=== PATIENT | male | born 1995 | race Caucasian/White ===

== ENCOUNTER 2017-03-11 21:42 | Emergency (ER) | payer BC ==
[2017-03-11] MEDS ORDERED: Ketorolac 60 MG/2 ML SDV IM ONE (21:57)
[2017-03-11] MEDS ORDERED: Acetaminophen/HYDROcodone 325-7.5 MG Tab PO ONE (21:58)
--- NOTE | 2017-03-11 22:01 | EDM.PDOC ---
ED HPI GENERAL MEDICAL PROBLEM - General Chief Complaint: Skin Complaint Stated Complaint: RASH ON BACK & STOMACH Time Seen by Provider: 03/11/17 21:50 - History of Present Illness INITIAL COMMENTS - FREE TEXT/NARRATIVE: HISTORY AND PHYSICAL: History of present illness: The patient is a 21-year-old male who has no stated medical problems and presents with a one-week history of rash that started on his soft tissue left thoracic back and has now spread around his rib cage. It is itchy and painful and he thinks it is zoster. Has had no systemic complaints of fever chills nausea vomiting chest pain or shortness of breath. Review of systems: As per history of present illness and below otherwise all systems reviewed and negative. Past medical history: As per history of present illness and as reviewed below otherwise noncontributory. Surgical history: As per history of present illness and as reviewed below otherwise noncontributory. Social history: No reported history of drug or alcohol abuse. Family history: As per history of present illness and as reviewed below otherwise noncontributory. Physical exam: Gen.: Well-developed well-nourished male who is nontoxic HEENT: Atraumatic, normocephalic, negative for conjunctival pallor or scleral icterus, mucous membranes moist, throat clear, neck supple, nontender, trachea midline. Lungs: Clear to auscultation, breath sounds equal bilaterally, chest nontender. There is a visible vesicular rash in the T6 distribution on the left side which has localized erythema but there is no bony crepitus deformities of soft tissue swelling Heart: S1S2, regular, negative for clicks, rubs, or JVD. Abdomen: Soft, nondistended, nontender. NABS Skin: Rash as described above otherwise no evidence of any rashes or lesions and normal turgor Genitourinary: Deferred. Rectal: Deferred. Extremities: Atraumatic, negative for cords or calf pain. Neurovascular unremarkable. Neuro: Awake, alert, oriented. Cranial nerves II through XII unremarkable. Cerebellum unremarkable. Motor and sensory unremarkable throughout. Exam nonfocal. Diagnostics: [] Therapeutics: Toradol [place] Impression: Zoster of the thoracic chest wall Definitive disposition and diagnosis as appropriate pending reevaluation and review of above. - Related Data Allergies Allergy/AdvReac Type Severity Reaction Status Date / Time No Known Allergies Allergy Verified 03/11/17 21:54 Home Meds: Home Meds . [No Known Home Meds] 03/11/17 [History] ED ROS GENERAL - Review of Systems Review Of Systems: ROS reveals no pertinent complaints other than HPI. ED EXAM, SKIN/RASH Exam: See Below (See dictation) Departure - Departure Time of Disposition: 22:00 Disposition: Home, Self-Care 01 Condition: Good Clinical Impression: Zoster Qualifiers: Herpes zoster complications: without complications Qualified Code(s): B02.9 - Zoster without complications - Discharge Information Forms: ED Department Discharge Additional Instructions: The following information is given to patients seen in the emergency department who are being discharged to home. This information is to outline your options for follow-up care. We provide all patients seen in our emergency department with a follow-up referral. The need for follow-up, as well as the timing and circumstances, are variable depending upon the specifics of your emergency department visit. If you don't have a primary care physician on staff, we will provide you with a referral. We always advise you to contact your personal physician following an emergency department visit to inform them of the circumstance of the visit and for follow-up with them and/or the need for any referrals to a consulting specialist. The emergency department will also refer you to a specialist when appropriate. This referral assures that you have the opportunity for followup care with a specialist. All of these measure are taken in an effort to provide you with optimal care, which includes your followup. Under all circumstances we always encourage you to contact your private physician who remains a resource for coordinating your care. When calling for followup care, please make the office aware that this follow-up is from your recent emergency room visit. If for any reason you are refused follow-up, please contact the [facility] emergency department at and ask to speak to the emergency department charge nurse. [facility] Primary care- [place] [address] Please take medications as prescribed and avoid contact with the individuals we discussed in the room. Please call and follow-up with primary care next week and return to ER as needed and as discussed. The rash will no longer be contagious once scabs form.
[2017-03-11 22:48] VITALS: BP 120/60
== END 2017-03-11 22:37 | disposition home or self-care (01) ==
LOC: MW.ED 21:42
DX: B02.9 Zoster without complications (principal)
CPT/HCPCS: 96372; 99282; A9270; J1885; 99283

== ENCOUNTER 2018-03-19 17:07 | Emergency (ER) | payer BC ==
[2018-03-19] MEDS ORDERED: Sodium Chloride 0.9% 1,000 ML IV ONE (17:21)
[2018-03-19] MEDS ORDERED: Ketorolac 30 MG/ML SDV IVPUSH ONE (17:21)
[2018-03-19] MEDS ORDERED: Ondansetron 4 MG/2 ML SDV IVPUSH ONE (17:21)
--- NOTE | 2018-03-19 17:26 | EDM.PDOC ---
ED HPI GENERAL MEDICAL PROBLEM - General Chief Complaint: Abdominal Pain Stated Complaint: ABDOMINAL PAIN Time Seen by Provider: 03/19/18 17:15 Source of Information: Reports: Patient History Limitations: Reports: No Limitations - History of Present Illness INITIAL COMMENTS - FREE TEXT/NARRATIVE: HISTORY AND PHYSICAL: History of present illness: Patient is a 22-year-old male who presents to the emergency room today with complaints of left upper abdominal pain, nausea and vomiting. He states he has had these symptoms intermittently over the past month that has progressively gotten worse over the past 24 hours. He states that this pain is "sharp" and is not associated with food. Denies any fever, chills, chest pain, shortness of breath or cough. Denies any diarrhea, constipation or dysuria. Denies any alcohol or drug abuse. Review of systems: As per history of present illness and below otherwise all systems reviewed and negative. Past medical history: As per history of present illness and as reviewed below otherwise noncontributory. Surgical history: As per history of present illness and as reviewed below otherwise noncontributory. Social history: No reported history of drug or alcohol abuse. Family history: As per history of present illness and as reviewed below otherwise noncontributory. Physical exam: General: Developed and well-nourished 22-year-old male. Alert and oriented. Nontoxic appearing and in no acute distress. HEENT: Atraumatic, normocephalic, pupils equal and reactive bilaterally, negative for conjunctival pallor or scleral icterus, mucous membranes moist, throat clear, neck supple, nontender, trachea midline. No drooling or trismus noted. No meningeal signs Lungs: Clear to auscultation, breath sounds equal bilaterally, chest nontender. Heart: S1S2, regular rate and rhythm without overt murmur Abdomen: Soft, nondistended, tenderness to the epigastrium and LUQ. Negative for masses or hepatosplenomegaly. Negative for costovertebral tenderness. Pelvis: Stable nontender. Genitourinary: Deferred. Rectal: Deferred. Skin: Intact, warm, dry. No lesions or rashes noted. Extremities: Atraumatic, negative for cords or calf pain. Neurovascular unremarkable. Neuro: Awake, alert, oriented. Cranial nerves II through XII unremarkable. Cerebellum unremarkable. Motor and sensory unremarkable throughout. Exam nonfocal. Notes: Lab work is unremarkable. Vital signs are stable. CT of the abdomen shows a moderate amount of feces throughout the colon, otherwise unremarkable. Patient was shared with the patient. Supportive care measures were reviewed with the patient. We discussed taking [id number] products to help facilitate a bowel movement. He did ask for some Zofran ODT for his nausea. We reviewed signs and symptoms that would prompt him to return to the emergency room. He is agreeable to plan of care. Denies any further questions at this time. Diagnostics: CBC, CMP, UA, amylase, lipase, CT abdomen and pelvis Therapeutics: IV fluid, Zofran, Toradol Impression: Abdominal Pain Plan: 1. Lab work and CT of the abdomen and pelvis are unremarkable. There does appear to be a moderate amount of feces throughout the colon. I would like you to use an over the counter softener (Colace/Miralax) to help facilitate a bowel movement. Increase your Oral fluids. 2. Zofran has been electronically prescribed for nausea management. This is available at [place] pharmacy. 3. Follow-up with your primary caregiver in the next 1-2 days. Return to the ED as needed and as discussed. Definitive disposition and diagnosis as appropriate pending reevaluation and review of above. LUQ Pain Score (Numeric/FACES): 8 - Related Data Allergies Allergy/AdvReac Type Severity Reaction Status Date / Time No Known Allergies Allergy Verified 03/19/18 17:22 Home Meds: Home Meds Albuterol [Proventil HFA] 1 puff INH QID PRN 03/19/18 [History] Bipolar Medication 1 tab PO DAILY 03/19/18 [History] Montelukast [Singulair] 10 mg PO DAILY 03/19/18 [History] Ondansetron [Zofran ODT] 4 mg PO Q6H PRN #8 tab.dis 03/19/18 [Rx] Past Medical History - Past Health History Medical/Surgical History: Denies Medical/Surgical History - Infectious Disease History Infectious Disease History: Reports: Chicken Pox Social & Family History - Family History Family Medical History: Noncontributory ED ROS GENERAL - Review of Systems Review Of Systems: ROS reveals no pertinent complaints other than HPI. ED EXAM, GI/ABD - Physical Exam Exam: See Below (See dictation) Course - Vital Signs Last Recorded V/S: Last Vital Signs Temp 97.7 F 03/19/18 18:16 Pulse 76 03/19/18 18:16 Resp 16 03/19/18 18:16 BP 105/64 03/19/18 18:16 Pulse Ox 95 03/19/18 18:16 - Orders/Labs/Meds Orders: Active Orders 24 hr Category Date Time Status Abdomen Pelvis w Cont [CT] Stat Exams 03/19/18 17:22 Ordered UA W/MICROSCOPIC [URIN] Stat Lab 03/19/18 17:25 Ordered Labs: Laboratory Tests 03/19/18 03/19/18 03/19/18 Range/Units 17:20 17:20 17:20 WBC 7.74 (4.0-11.0) K/uL RBC 4.94 (4.50-5.90) M/uL Hgb 15.5 (13.0-17.0) g/dL Hct 44.6 (38.0-50.0) % MCV 90.3 (80.0-98.0) fL MCH 31.4 (27.0-32.0) pg MCHC 34.8 (31.0-37.0) g/dL RDW Std Deviation 41.8 (28.0-62.0) fl RDW Coeff of [place] 13 (11.0-15.0) % Plt Count 178 (150-400) K/uL MPV 10.30 (7.40-12.00) fL Neut % (Auto) 57.5 (48.0-80.0) % Lymph % (Auto) 31.5 (16.0-40.0) % [place] % (Auto) 6.8 (0.0-15.0) % Eos % (Auto) 3.7 (0.0-7.0) % Baso % (Auto) 0.5 (0.0-1.5) % Neut # (Auto) 4.4 (1.4-5.7) K/uL Lymph # (Auto) 2.4 (0.6-2.4) K/uL [place] # (Auto) 0.5 (0.0-0.8) K/uL Eos # (Auto) 0.3 (0.0-0.7) K/uL Baso # (Auto) 0.0 (0.0-0.1) K/uL Nucleated RBC % 0.0 /100WBC Nucleated RBCs # 0 K/uL Sodium 141 (136-148) mmol/L Potassium 3.9 (3.5-5.1) mmol/L Chloride 104 (98-107) mmol/L Carbon Dioxide 27.5 (21.0-32.0) mmol/L BUN 16 (7.0-18.0) mg/dL Creatinine 1.1 (0.8-1.3) mg/dL Est Cr Clr Drug Dosing 96.81 mL/min Estimated GFR (MDRD) > 60.0 ml/min Glucose 99 (74-106) mg/dL Calcium 8.5 (8.5-10.1) mg/dL Total Bilirubin 0.7 (0.2-1.0) mg/dL AST 30 (15-37) IU/L ALT 18 (14-63) IU/L Alkaline Phosphatase 68 (46-116) U/L Total Protein 7.2 (6.4-8.2) g/dL Albumin 4.3 (3.4-5.0) g/dL Globulin 2.9 (2.0-3.5) g/dL Albumin/Globulin Ratio 1.5 (1.3-2.8) Amylase 76 (25-115) U/L Lipase 321 (73-393) U/L Urine Color Urine Appearance Urine pH (5.0-8.0) Ur Specific [place] (1.001-1.035) Urine Protein (NEGATIVE) mg/dL Urine Glucose (UA) (NEGATIVE) mg/dL Urine Ketones (NEGATIVE) mg/dL Urine Occult Blood (NEGATIVE) Urine Nitrite (NEGATIVE) Urine Bilirubin (NEGATIVE) Urine Urobilinogen (<2.0) EU/dL Ur Leukocyte Esterase (NEGATIVE) Urine RBC (0-2/HPF) Urine WBC (0-5/HPF) Ur Epithelial Cells (NONE-FEW) Amorphous Sediment (NEGATIVE) Urine Bacteria (NEGATIVE) H. pylori IgG Antibody NEGATIVE (NEG) 03/19/18 Range/Units 17:25 WBC (4.0-11.0) K/uL RBC (4.50-5.90) M/uL Hgb (13.0-17.0) g/dL Hct (38.0-50.0) % MCV (80.0-98.0) fL MCH (27.0-32.0) pg MCHC (31.0-37.0) g/dL RDW Std Deviation (28.0-62.0) fl RDW Coeff of [place] (11.0-15.0) % Plt Count (150-400) K/uL MPV (7.40-12.00) fL Neut % (Auto) (48.0-80.0) % Lymph % (Auto) (16.0-40.0) % [place] % (Auto) (0.0-15.0) % Eos % (Auto) (0.0-7.0) % Baso % (Auto) (0.0-1.5) % Neut # (Auto) (1.4-5.7) K/uL Lymph # (Auto) (0.6-2.4) K/uL [place] # (Auto) (0.0-0.8) K/uL Eos # (Auto) (0.0-0.7) K/uL Baso # (Auto) (0.0-0.1) K/uL Nucleated RBC % /100WBC Nucleated RBCs # K/uL Sodium (136-148) mmol/L Potassium (3.5-5.1) mmol/L Chloride (98-107) mmol/L Carbon Dioxide (21.0-32.0) mmol/L BUN (7.0-18.0) mg/dL Creatinine (0.8-1.3) mg/dL Est Cr Clr Drug Dosing mL/min Estimated GFR (MDRD) ml/min Glucose (74-106) mg/dL Calcium (8.5-10.1) mg/dL Total Bilirubin (0.2-1.0) mg/dL AST (15-37) IU/L ALT (14-63) IU/L Alkaline Phosphatase (46-116) U/L Total Protein (6.4-8.2) g/dL Albumin (3.4-5.0) g/dL Globulin (2.0-3.5) g/dL Albumin/Globulin Ratio (1.3-2.8) Amylase (25-115) U/L Lipase (73-393) U/L Urine Color YELLOW Urine Appearance CLEAR Urine pH 6.5 (5.0-8.0) Ur Specific [place] 1.020 (1.001-1.035) Urine Protein NEGATIVE (NEGATIVE) mg/dL Urine Glucose (UA) NEGATIVE (NEGATIVE) mg/dL Urine Ketones NEGATIVE (NEGATIVE) mg/dL Urine Occult Blood NEGATIVE (NEGATIVE) Urine Nitrite NEGATIVE (NEGATIVE) Urine Bilirubin NEGATIVE (NEGATIVE) Urine Urobilinogen 0.2 (<2.0) EU/dL Ur Leukocyte Esterase NEGATIVE (NEGATIVE) Urine RBC 0-1 (0-2/HPF) Urine WBC 0-1 (0-5/HPF) Ur Epithelial Cells RARE (NONE-FEW) Amorphous Sediment LIGHT (NEGATIVE) Urine Bacteria RARE (NEGATIVE) H. pylori IgG Antibody (NEG) Meds: Medications Discontinued Medications Generic Name Dose Route Start Last Admin Trade Name Freq PRN Reason Stop Dose Admin Sodium Chloride 1,000 mls @ 999 mls/hr 03/19/18 17:21 03/19/18 17:33 Normal Saline IV 03/19/18 18:21 999 mls/hr STAT ONE Administration Iopamidol 100 ml 03/19/18 18:24 03/19/18 18:27 Isovue-370 (76%) IVPUSH 03/19/18 18:25 100 ml ONETIME STA Administration Ketorolac Tromethamine 30 mg 03/19/18 17:21 03/19/18 17:32 Toradol IVPUSH 03/19/18 17:22 30 mg ONETIME ONE Administration Ondansetron HCl 4 mg 03/19/18 17:21 03/19/18 17:32 Zofran IVPUSH 03/19/18 17:22 4 mg ONETIME ONE Administration Departure - Departure Time of Disposition: 19:14 Disposition: Home, Self-Care 01 Clinical Impression: Abdominal pain Qualifiers: Abdominal location: left upper quadrant Qualified Code(s): R10.12 - Left upper quadrant pain - Discharge Information Prescriptions: Ondansetron [Zofran ODT] 4 mg PO Q6H PRN #8 tab.dis PRN Reason: Nausea Instructions: Abdominal Pain, Adult, [id number] Referrals: PCP,None [Primary Care Provider] - Forms: ED Department Discharge Additional Instructions: The following information is given to patients seen in the emergency department who are being discharged to home. This information is to outline your options for follow-up care. We provide all patients seen in our emergency department with a follow-up referral. The need for follow-up, as well as the timing and circumstances, are variable depending upon the specifics of your emergency department visit. If you don't have a primary care physician on staff, we will provide you with a referral. We always advise you to contact your personal physician following an emergency department visit to inform them of the circumstance of the visit and for follow-up with them and/or the need for any referrals to a consulting specialist. The emergency department will also refer you to a specialist when appropriate. This referral assures that you have the opportunity for follow-up care with a specialist. All of these measure are taken in an effort to provide you with optimal care, which includes your follow-up. Under all circumstances we always encourage you to contact your private physician who remains a resource for coordinating your care. When calling for follow-up care, please make the office aware that this follow-up is from your recent emergency room visit. If for any reason you are refused follow-up, please contact the [facility] Emergency Department at and asked to speak to the emergency department charge nurse. [facility] [address] [place] [id number] 1. Lab work and CT of the abdomen and pelvis are unremarkable. There does appear to be a moderate amount of stool throughout the colon. I would like you to take an over the counter softener (Colace/Miralax) to help facilitate a bowel movement. Increase your Oral fluids. 2. Zofran has been electronically prescribed for nausea management. This is available at [place] pharmacy. 3. Follow-up with your primary caregiver in the next 1-2 days. Return to the ED as needed and as discussed. - My Orders Last 24 Hours: My Active Orders 03/19/18 17:22 Abdomen Pelvis w Cont [CT] Stat 03/19/18 17:25 UA W/MICROSCOPIC [URIN] Stat - Assessment/Plan Last 24 Hours: My Active Orders 03/19/18 17:22 Abdomen Pelvis w Cont [CT] Stat 03/19/18 17:25 UA W/MICROSCOPIC [URIN] Stat
[2018-03-19 18:02] LABS: CHLORIDE,CL 104 mmol/L (98-107); SODIUM,NA 141 mmol/L (136-148)
[2018-03-19] MEDS ORDERED: Iopamidol 755 Mg/ML 100 ML Bottle IVPUSH STA (18:24)
[2018-03-19 19:31] VITALS: BP 105/60
--- NOTE | 2018-03-20 10:50 | CT ---
EXAM DATE: 03/19/18 PATIENT'S AGE: 22 Patient: ABBIE ALVAREZ Facility: [place], [place] Site . Site : 1995 Study: CT Abdomen/Pelvis [id number]/25/2018 6:39:19 PM Ordering Physician: Doctor Reyna Final Report: INDICATION: LUQ pain x1 month, nausea and vomiting TECHNIQUE: CT abdomen and pelvis acquired with 100cc Isovue 370 IV contrast. COMPARISON: None FINDINGS: Lower chest: Unremarkable. Liver: Unremarkable. Spleen: Punctate calcified granulomata. Pancreas: Unremarkable. Gallbladder and bile ducts: Unremarkable. Adrenal glands: Unremarkable. Kidneys: Unremarkable. GI tract: Moderate amount of feces throughout the colon. Appendix is normal. Vascular structures: Unremarkable. Lymph nodes: Unremarkable. Miscellaneous: Unremarkable. No free air or significant free fluid. Pelvic Organs: Unremarkable. Bones: Unremarkable for age. IMPRESSION: Moderate amount of feces throughout the colon, otherwise unremarkable CT of the abdomen and pelvis. Please note that all CT scans at this facility use dose modulation, iterative reconstruction, and/or weight-based dosing when appropriate to reduce radiation dose to as low as reasonably achievable. Dictated by Deborah Perez MD @ Mar 19 2018 7:04PM (Electronic Signature) Report Signed by Proxy. CELI
== END 2018-03-19 19:25 | disposition home or self-care (01) ==
LOC: MW.ED 17:07
DX: R10.12 Left upper quadrant pain (principal); Z79.899 Other long term (current) drug therapy
CPT/HCPCS: 36415; 74177; 80053; 81001; 82150; 83690; 85025; 86677; 96361; 96374; 96375; 99284; J1885; J2405; J7040; Q9967